=== PATIENT | male | born 1960 | race Caucasian/White ===

== ENCOUNTER 2017-02-20 20:01 | Outpatient (CLI) | payer BC ==
--- NOTE | 2017-02-22 11:01 | CT Report ---
CT OF THE SINUSES: 02/20/2017 CLINICAL HISTORY: The patient has nasal obstruction. TECHNIQUE: Axial, coronal, and sagittal reconstructions were done at 3 x 3 mm intervals. FINDINGS: Nasal cavity shows the middle and inferior nasal turbinates to be normal. Ethmoidal sinuses show a moderate degree of mucosal thickening bilaterally. Maxillary sinuses demonstrate mild to moderate amount of fluid and /or mucosal thickening, especially in the inferior half of this maxillary sinus. There is a small mucous retention cyst noted along the anteromedial aspect of the mid maxillary sinus measuring 1 cm. Minor mucosal thickening is seen along the superior lateral aspect of the right maxillary sinus. The infundibula and ostia of the right maxillary sinus are obstructed as a result of fluid and/or mucosal thickening. Left maxillary sinus appears normal. Mild mucosal thickening and minimal amount of fluid is seen in the inferior aspect of the left frontal sinus. Sphenoid sinus appears normal. Mild deviation of the bony and cartilaginous nasal septum is noted to the left. IMPRESSION: SINUSITIS IS NOTED INVOLVING THE ETHMOIDAL SINUSES, RIGHT MAXILLARY SINUS, AND INFERIOR ASPECT OF THE LEFT FRONTAL SINUS DISCUSSED ABOVE. THERE IS A SUGGESTION OF A SMALL MUCOUS RETENTION CYST MEASURING 1 CM IN DIAMETER IN THE ANTEROMEDIAL ASPECT OF THE RIGHT MAXILLARY SINUS. In accordance with CT protocol optimization, one or more of the following dose reduction techniques were utilized for this exam: automated exposure control, adjustment of mA and/or KV based on patient size, or use of iterative reconstructive technique. JOB #: [id number] EXT JOB #: [id number] DANIEL
== END 2017-02-20 20:02 | disposition home or self-care (01) ==
LOC: DI 20:01
PROVIDERS: ATTEND Otolaryngology
DX: J32.8 Other chronic sinusitis (principal)
CPT/HCPCS: 70486

== ENCOUNTER 2017-03-31 11:15 | Outpatient (CLI) | payer BC | END 2017-03-31 11:16 | disposition home or self-care (01) | LOC: DI 11:15 | PROVIDERS: ATTEND Family Medicine | DX: R00.2 Palpitations (principal) | CPT/HCPCS: 93306 ==

== ENCOUNTER 2021-07-22 07:40 | Outpatient (CLI) | payer BC | END 2021-07-22 23:59 | disposition home or self-care (01) | LOC: LAB.N 07:40 | PROVIDERS: ATTEND Nurse Practitioner | DX: R09.81 Nasal congestion (principal); Z20.822 Contact with and (suspected) exposure to COVID-19 ==